=== PATIENT | male | born 1975 | race African-American/Black ===

== ENCOUNTER 2021-05-12 14:19 | Emergency (ER) | payer MEDICAID ==
[~2021-05-12] VITALS: Ht 177.8 cm; Wt 65.0 kg
[2021-05-12] MEDS ORDERED: KETOROLAC 60MG/2ML VIAL IM ONE (15:00)
[2021-05-12] MEDS ORDERED: IBUP-2029 MT (15:59)
[2021-05-12] MEDS ORDERED: CEPH500T MT (15:59)
[2021-05-12 16:14] VITALS: BP 135/65
== END 2021-05-12 16:14 | disposition home or self-care (01) ==
LOC: ER 14:19
DX: S20.211A Contusion of right front wall of thorax, initial encounter (principal); S03.2XXA Dislocation of tooth, initial encounter; Y04.2XXA Assault by strike against or bumped into by another person, initial encounter; R03.0 Elevated blood-pressure reading, without diagnosis of hypertension; Y93.89 Activity, other specified; Y92.512 Supermarket, store or market as the place of occurrence of the external cause
CPT/HCPCS: 71046; 96372; 99283; J1885

== ENCOUNTER 2025-02-26 12:35 | Emergency (ER) | payer MEDICAID ==
[~2025-02-26] VITALS: Ht 180.3 cm; Wt 74.0 kg
[~2025-02-26 12:35] MED LIST: CEPH500T MT; IBUP-1455 MT
[2025-02-26 12:39] VITALS: O2SAT 100
[2025-02-26 12:48] VITALS: BP 136/109; PULSE 68; RESP 16; TEMP 36.9; O2SAT 100
== END 2025-02-26 15:03 | disposition left against medical advice (07) ==
LOC: ER 12:35
DX: M54.50 Low back pain, unspecified (principal)
CPT/HCPCS: 99281